=== PATIENT | female | born 2000 | race Caucasian/White ===

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

== ENCOUNTER 2019-03-18 18:47 | Emergency (ER) | payer MEDICAID ==
[~2019-03-18] VITALS: Ht 167.6 cm; Wt 65.0 kg
[2019-03-18 18:48] VITALS: BP 128/78
--- NOTE | 2019-03-18 19:26 | NUR ---
lab to bedside and urine sent. pt awaiting US and ERP recheck of results.
[2019-03-18 19:34] LABS: CULTURE INDICATED? NO; MICROSCOPIC AUTO
[2019-03-18 19:36] LABS: BASOPHILS # (AUTO) 0.03 x10^3/uL (0-0.3); BASOPHILS % (AUTO) 1 % (0-1); EOSINOPHILS # (AUTO) 0.08 x10^3/uL (0-0.8); EOSINOPHILS % (AUTO) 1 % (1-7); LYMPHOCYTES # (AUTO) 1.79 x10^3/uL (1-6.1); LYMPHOCYTES % (AUTO) 31 % (22-44); MD NO; MEAN CORPUSCULAR HEMOGLOBIN 30.1 pg (27.0-34.8); MEAN CORPUSCULAR HGB CONC 33.8 g/dL (32.4-35.8); MEAN CORPUSCULAR VOLUME 89.1 fL (80-100); MEAN PLATELET VOLUME 8.3 fL (7.4-10.4); MONOCYTES # (AUTO) 0.43 x10^3/uL (0-1.4); MONOCYTES % (AUTO) 8 % (2-9); NEUTROPHILS % (AUTO) 59 % (42-75); PLATELET COUNT 249 x10^3/uL (130-400); RED BLOOD COUNT 4.91 x10^6/uL (3.82-5.3); RED CELL DISTRIBUTION WIDTH 12.8 % (9.6-15.2)
[2019-03-18 19:48] LABS: ALANINE AMINOTRANSFERASE 23 U/L (12-78); ALBUMIN 4.5 g/dL (3.4-5.0); ANION GAP 4 mmol/L (5-15); CALCIUM 9.5 mg/dL (8.5-10.1); CHLORIDE 109 mmol/L (98-107); CREATININE 0.74 mg/dL (0.55-1.02)
--- NOTE | 2019-03-18 19:51 | NUR ---
pt to US
[2019-03-18 19:52] LABS: ALKALINE PHOSPHATASE 62 U/L (45-117); BILIRUBIN,TOTAL 0.4 mg/dL (0.2-1.0); TOTAL PROTEIN 7.5 g/dL (6.4-8.2)
--- NOTE | 2019-03-18 20:51 | NUR ---
pt up for recheck
== END 2019-03-18 22:02 | disposition home or self-care (01) ==
LOC: ED 19:23
DX: O20.0 Threatened abortion (principal); J45.909 Unspecified asthma, uncomplicated; Z3A.01 Less than 8 weeks gestation of pregnancy; Z90.89 Acquired absence of other organs
CPT/HCPCS: 36415; 76856; 80053; 81001; 84702; 85025; 86901; 99284

== ENCOUNTER 2019-03-20 12:42 | Emergency (ER) | payer MEDICAID ==
[~2019-03-20] VITALS: Ht 170.2 cm; Wt 63.4 kg
[2019-03-20 13:32] LABS: BASOPHILS # (AUTO) 0.02 x10^3/uL (0-0.3); BASOPHILS % (AUTO) 0 % (0-1); EOSINOPHILS # (AUTO) 0.06 x10^3/uL (0-0.8); EOSINOPHILS % (AUTO) 1 % (1-7); LYMPHOCYTES # (AUTO) 1.57 x10^3/uL (1-6.1); LYMPHOCYTES % (AUTO) 26 % (22-44); MD NO; MEAN CORPUSCULAR HEMOGLOBIN 30.3 pg (27.0-34.8); MEAN CORPUSCULAR HGB CONC 34.1 g/dL (32.4-35.8); MEAN CORPUSCULAR VOLUME 88.8 fL (80-100); MEAN PLATELET VOLUME 8.4 fL (7.4-10.4); MONOCYTES # (AUTO) 0.58 x10^3/uL (0-1.4); MONOCYTES % (AUTO) 10 % (2-9); NEUTROPHILS # (AUTO) 3.79 x10^3/uL (1.8-8.0); NEUTROPHILS % (AUTO) 63 % (42-75); PLATELET COUNT 274 x10^3/uL (130-400); RED BLOOD COUNT 5.01 x10^6/uL (3.82-5.3); RED CELL DISTRIBUTION WIDTH 12.4 % (9.6-15.2)
[2019-03-20 13:43] LABS: ALBUMIN 4.5 g/dL (3.4-5.0); ANION GAP 6 mmol/L (5-15); CHLORIDE 109 mmol/L (98-107)
[2019-03-20 13:49] LABS: CREATININE 0.77 mg/dL (0.55-1.02)
--- NOTE | 2019-03-20 14:33 | NUR ---
patient arrives with continued vaginal bleeding and blood clots. she was seen here on sat and her hcg levels were low, so she was told to do follow up and come back. she contines to have abdominal pain and right sided cramping. she has one child. she has been three times, one two months ago.
[2019-03-20 14:58] LABS: CULTURE INDICATED? YES; MICROSCOPIC INDICATED
--- NOTE | 2019-03-20 15:35 | NUR ---
patient in ultrasound. baby with [employer] medical student.
--- NOTE | 2019-03-20 15:58 | NUR ---
Note aliciaprasad in EDM - 03/20/19 at 1559 by KATELYN patient discharge teaching reviewed including course of two antibiotics, pain medications and zofran. patient shows understanding and is ready to go home. left with friend coming to pick her up.
[2019-03-20 16:29] VITALS: BP 118/78
--- NOTE | 2019-03-20 16:30 | NUR ---
discharge teaching reviewed, shows understanding. patient knows to follow up with ob.
== END 2019-03-20 16:33 | disposition home or self-care (01) ==
LOC: ED 16:05
DX: N93.9 Abnormal uterine and vaginal bleeding, unspecified (principal); N83.201 Unspecified ovarian cyst, right side
CPT/HCPCS: 36415; 76801; 80048; 81001; 82040; 84702; 85025; 87086; 99284

== ENCOUNTER 2019-04-23 03:01 | Emergency (ER) | payer MEDICAID ==
[2019-04-23 03:03] VITALS: BP 117/59
[2019-04-23] MEDS ORDERED: DEXAMETHASONE 4 MG TABLET PO STA (03:48)
[2019-04-23] MEDS ORDERED: DEXAMETHASONE 4 MG TABLET ONE (03:54)
--- NOTE | 2019-04-23 05:13 | NUR ---
DC EDUCATION PROVIDED, PT DEMONSTRATES UNDERSTANDING. PT AMBULATED STEADILY TO DC WITH RN
== END 2019-04-23 05:07 | disposition home or self-care (01) ==
LOC: ED 03:10
DX: J02.8 Acute pharyngitis due to other specified organisms (principal); B34.9 Viral infection, unspecified; J45.909 Unspecified asthma, uncomplicated
CPT/HCPCS: 71046; 87081; 87880; 99284